=== PATIENT | male | born 1925 | race Caucasian/White ===

== ENCOUNTER → 2016-02-16 | Day surgery (SDC) | payer MEDICARE ==
[2016-02-13 10:51] VITALS: BP 136/55
[~2016-02-16] VITALS: Ht 180.3 cm; Wt 136.1 kg
[~2016-02-16] MED LIST: ALLOPURINOL100 MG PO; APAP500 MG PO; ASPIRIN81 M1 PO; FERROUS SULFAT324 M1 PO; LASIX40 MG PO; LEVOTHYROXIN0.025 M1 PO; LIDOCAINE15 GM TD; MAGNESIUM400 M1 PO; METOLAZONE2.5 MG PO; NORCO 5-325 TA1 EACH PO; OMEPRAZOLE20 M2 PO; OMEPRAZOLE40 MG PO; POLYETHYLENE GL1 PO6 PO; POTASSIUM CHLO10 MEQ PO; POTASSIUM CHLO20 ME3 PO; PRAVASTATIN SOD80 MG PO; PRESERVISION L1 EACH PO; REMERON15 M2 PO; SPIRONOLACTONE25 MG PO; TOPROL XL25 MG PO; TRIPLE ANTIBIOT T; VITAMIN B121000 MC1 PO; VITAMIN D31000 IU PO; VITAMIN D34000 UNIT PO; [UNRECOGNIZED DRUG - OTHER] PO
--- NOTE | ~2016-02-16 | O ---
[place], [place] OPERATIVE NOTE NAME: KOTA DIA JR UNIT #: [id number] ROOM: DOCTOR: ORI WEAVER MD BIRTHDATE: [birth year] DOS: 02/16/2016 PREOPERATIVE DIAGNOSES: 1. Left cheek basal cell carcinoma. 2. Right neck retroauricular cyst. POSTOPERATIVE DIAGNOSES: 1. Left cheek basal cell carcinoma. 2. Right neck retroauricular cyst. PROCEDURE: Excision of basal cell carcinoma of the left cheek, measuring up to 1.5 cm and excision of right retroauricular neck cyst, measuring 1.5 cm. SURGEON: Ori Weaver MD ANESTHESIA: Local 1% Xylocaine with epinephrine, and bicarbonate. DESCRIPTION OF THE PROCEDURE: The patient's left cheek and the right neck were prepped and draped in normal sterile fashion. The incision marked on the left cheek and 1% Xylocaine with bicarbonate and epinephrine injected. An elliptical incision made and dissected in the subcutaneous tissue and then closed with 5-0 nylon vertical mattress suture and ointment applied. The right neck lesion again anesthetized with local and elliptical incision made around it and wide excision done and sent for examination. Closure done with 4-0 nylon vertical mattress suture. Dressing applied. The patient tolerated the procedure well and was sent to room. Ori Weaver MD CM:OPRECORD:OPERATIVE NOTE [id number] [id number] ORI WEAVER MD 02/16/16 1400 interface
[2016-02-16 10:00] VITALS: BP 157/99
[2016-02-16 11:10] VITALS: BP 138/86
[2016-02-16 11:25] VITALS: BP 141/85
== END | disposition home or self-care (01) ==
LOC: SDC 02-13 11:00
DX: C44.319 Basal cell carcinoma of skin of other parts of face (principal); C44.41 Basal cell carcinoma of skin of scalp and neck; I25.10 Atherosclerotic heart disease of native coronary artery without angina pectoris; J44.9 Chronic obstructive pulmonary disease, unspecified; E07.9 Disorder of thyroid, unspecified; I50.9 Heart failure, unspecified; D64.9 Anemia, unspecified; I12.9 Hypertensive chronic kidney disease with stage 1 through stage 4 chronic kidney disease, or unspecified chronic kidney disease; N18.9 Chronic kidney disease, unspecified; I48.91 Unspecified atrial fibrillation; I73.9 Peripheral vascular disease, unspecified; Z80.9 Family history of malignant neoplasm, unspecified; Z87.891 Personal history of nicotine dependence

== ENCOUNTER → 2016-09-24 | Outpatient (CLI) | payer MEDICARE | END | disposition home or self-care (01) | LOC: CANPRECLI → ORTHO 02:08 | DX: Z53.9 Procedure and treatment not carried out, unspecified reason (principal) ==